=== PATIENT | female | born 1960 | race Caucasian/White ===

== ENCOUNTER 2016-11-08 13:25 | Day surgery (SDC) | payer OTHER ==
[~2016-11-08] VITALS: Ht 157.5 cm; Wt 69.5 kg
[~2016-11-08 13:25] MED LIST: DUCOSATE PO; FLUTICASONE PROPIONATE INH; GABAPENTIN PO; HYDROCODONE PO; OMEPRAZOLE PO; TRAMADOL PO; benazepril PO
[2016-11-08] MEDS ORDERED: DULO60CA59 PO (14:26)
[2016-11-08] MEDS ORDERED: FLUT16SP17 NASAL (14:26)
[2016-11-08] MEDS ORDERED: GLIM4TAB PO (14:26)
[2016-11-08] MEDS ORDERED: MTF1000T PO (14:26)
[2016-11-08] MEDS ORDERED: ASTHMA INHALER INH (14:26)
[2016-11-08 14:27] VITALS: Ht 157.5 cm; Wt 69.5 kg
[2016-11-08] MEDS ORDERED: PROPOFOL 20 ML ONE (15:40)
[2016-11-08] MEDS ORDERED: LIDOCAINE 2% (SDV) 5 ML INJ ONE (15:40)
[2016-11-08 15:41] VITALS: BP 155/72; PULSE 71; RESP 18
[2016-11-08] MEDS ORDERED: MIDAZOLAM 1 MG/ML 2 ML INJ ONE (15:41)
--- NOTE | 2016-11-08 17:04 | OPPN ---
Date/Time of Note Date/Time of Note DATE: 11/08/16 TIME: 16:54 Proc Note GI Procedure Date 11/08/16 Pre-procedure Diagnosis * Atypical chest pain Post-procedure Diagnosis Assessment: * Moderate distal esophagitis * Evidence of Brigitte fundoplication with s significant deformity and some degree of outflow obstruction * Moderate gastritis. Rule out H. pylori infection. Biopsies obtained Plan: * PPI therapy plus liquid Carafate * Consider Reglan if symptoms persist * Esophagogram to assess esophageal emptying Surgeon KRISHNA KRAUS MD Supervisor [employer] none Anesthesia Type: MAC Anesthesiologist: JAIME REED MD Tourniquet Time none EBL none Transfusion required none Biopsy 1: Gastric body and antrum/rule out H. pylori Grafts/Implants none Tubes/Drains none Complication(s) none Pt Condition post procedure: stable Disposition: home Indications: other (atypical chest pain) Procedure Description After informed consent, with the patient/relatives understanding the procedure, its indications, potential risks and complications, including but not limited to : allergic reaction, bleeding, perforation or infection, and after all pertinent questions were answered to the patients satisfaction, the patient/ relatives signed witnessed informed consent. Following this, premedication was administered slowly IV push under careful cardiovascular and respiratory monitoring with pulse oximetry, automatic blood pressure, and athletic monitor. Once the sedative effect was achieved the patient was place in the left lateral decubitus, the panendoscope was introduced and advanced under visual control. Careful examination of the upper gastrointestinal tract, both on insertion as well as withdrawal of the instrument disclosing the following findings: ESOPHAGUS: the mucosa of the entire esophagus was carefully examined and showed the following findings: There is some tortuosity of the esophagus and some retained material in the body of the esophagus. There is erythema and edema of the mucosa at the e.g. junction small hiatal hernia is present and there is evidence of deformity and a narrowed area related to fundoplication. There is the appearance of outlet obstruction due to angulation. Otherwise the mucosa appears within normal limits. There is no evidence of varices, neoplasm, or stricture. No Hiatal Hernia identified. STOMACH: Upon entrance to the stomach air was insufflated, the gastric carrera distended normally. The mucosa of the fundus, body and antrum of the stomach was carefully examined both head-on and on retroflexion, and showed the following findings: There is significant erythema and edema of the mucosa of the body and antrum of the stomach. Biopsies were obtained to rule out H. pylori infection. Otherwise the mucosa appears within normal limits with no abnormalities. There is no evidence of ulcers or neoplasm. PYLORUS: The pylorus was carefully examined and showed the following findings: the pylorus appears patent and within normal limits, with no evidence of gastric outlet obstruction. DUODENUM: The duodenal mucosa was carefully examined in the duodenal bulb as well as the second portion of the duodenum and showed the following findings: the mucosa appears unremarkable with no evidence of duodenitis, ulcer or neoplasm. Copies To: CC: KRISHNA KRAUS MD, MORDO MD Nov 08, 2016 17:04
[2016-11-08 17:13] VITALS: BP 152/79; PULSE 70; RESP 20
== END 2016-11-08 18:53 | disposition home or self-care (01) ==
LOC: GIL 13:25
PROVIDERS: ATTEND Internal Medicine Gastroenterology
DX: K29.50 Unspecified chronic gastritis without bleeding (principal); K20.9 Esophagitis, unspecified; M19.90 Unspecified osteoarthritis, unspecified site; J45.909 Unspecified asthma, uncomplicated; K21.9 Gastro-esophageal reflux disease without esophagitis; E78.5 Hyperlipidemia, unspecified; E11.9 Type 2 diabetes mellitus without complications; I10 Essential (primary) hypertension; E66.9 Obesity, unspecified; Z68.28 Body mass index [BMI] 28.0-28.9, adult
CPT/HCPCS: 43239; 82962; 88305; 88312; J2250

== ENCOUNTER 2016-11-20 13:48 | Day surgery (SDC) | payer OTHER ==
[~2016-11-20] VITALS: Ht 156.2 cm; Wt 68.5 kg
[~2016-11-20 13:48] MED LIST changes: +ASTHMA INHALER INH; -DUCOSATE PO; +DULO60CA59 PO; +FLUT16SP17 NASAL; -FLUTICASONE PROPIONATE INH; +GLIM4TAB PO; -HYDROCODONE PO; +MTF1000T PO; -OMEPRAZOLE PO
[2016-11-20 14:43] VITALS: Ht 156.2 cm; Wt 68.5 kg
[2016-11-20] MEDS ORDERED: tums PO (15:05)
[2016-11-20] MEDS ORDERED: LOPE2CAP PO (15:05)
[2016-11-20] MEDS ORDERED: ALBU18HF INHALATION (15:05)
[2016-11-20] MEDS ORDERED: FAMO20TA18 PO (15:05)
--- NOTE | 2016-11-20 16:06 | OPPN ---
Date/Time of Note Date/Time of Note DATE: 11/20/16 TIME: 15:59 Proc Note GI Procedure Date 11/20/16 Pre-procedure Diagnosis * CRC screening Post-procedure Diagnosis Impression: * Post R colectomy. End to side anastomosis. * Moderate size internal hemorrhoids Plan: Follow up as scheduled] High fiber diet Annual hemoccult stool testing [Surveillance colonoscopy in 5 years] . Procedure Performed: Colonoscopy Surgeon KRISHNA KRAUS MD [employer] [place] none Anesthesia Type: MAC Anesthesiologist: WILLY EDWARDS MD Tourniquet Time none EBL none Transfusion required none Biopsy 1: NONE Grafts/Implants none Tubes/Drains none Complication(s) none Pt Condition post procedure: stable Disposition: home Indications: surveillance after polyp Procedure Description After informed consent, with the patient/relatives understanding the procedure, its indications and potential risks and complications, including but not limited to: Allergic reaction, bleeding, perforation, infection, and after all pertinent questions were answered to the patient's satisfaction, the patient/ relatives signed the witnessed informed consent. Following this, premedication was administered slowly IV push under careful cardiovascular and respiratory monitoring with pulse OX[employer], automatic blood pressure, and microsoft office instructor. Once the sedative effect was achieved, the patient was placed in the left lateral decubitus position, digital rectal examination was performed. The colonoscope was then introduced and advanced under visual control throughout all segments of the colon including: []the rectum, sigmoid, descending colon, splenic flexure, transverse colon, hepatic flexure, ascending colon were an end-to-side ileocolonic anastomosis is present.. Careful examination of the mucosa of the lower gastrointestinal tract both on insertion as well as withdrawal of the instrument disclosed the following findings: PREPARATION QUALITY: [Adequate] RECTAL EXAM: The anorectal area was visualized examined and digital rectal examination performed with the following findings: No evidence of perirectal disease, no masses. COLONIC MUCOSA: The mucosa of all segments of the colon was carefully examined and showed the following findings: There is evidence of an end-to-side ileocolonic anastomosis in the right side of the colon. Moderate size internal hemorrhoids are present. Otherwise the examined mucosa appears within normal limits. There is no evidence of inflammatory changes, diverticular formation, polyps or other neoplasms, vascular malformation, or any other abnormality. The instrument was then withdrawn, the patient tolerated the procedure well and was transferred out of the Endoscopy Suite awake and in good condition to continue recovery under observation. Copies To: CC: KRISHNA KRAUS MD, MORDO MD Nov 20, 2016 16:06
[2016-11-20] MEDS ORDERED: PROPOFOL 40 ML ONE (16:12)
[2016-11-20] MEDS ORDERED: LIDOCAINE 2% (SDV) 5 ML INJ ONE (16:12)
[2016-11-20 16:30] VITALS: BP 109/66; RESP 14
== END 2016-11-20 17:02 | disposition home or self-care (01) ==
LOC: GIL 13:48
PROVIDERS: ATTEND Internal Medicine Gastroenterology
DX: K63.89 Other specified diseases of intestine (principal); E11.9 Type 2 diabetes mellitus without complications; E78.5 Hyperlipidemia, unspecified; K75.4 Autoimmune hepatitis
CPT/HCPCS: 82962

== ENCOUNTER 2017-10-07 13:57 | Emergency (ER) | END 2017-10-07 19:03 | disposition home or self-care (01) ==